=== PATIENT | female | born 1995 | race African-American/Black ===

== ENCOUNTER 2019-10-18 18:04 | Emergency (ER) | payer SELFPAY ==
[~2019-10-18] VITALS: Ht 173.5 cm; Wt 138.1 kg
--- NOTE | 2019-10-18 18:18 | NUR ---
Brought to Overflow Room secured for pysch patient if sitter with patient. ER already has pysch pt in the pysch room.
--- NOTE | 2019-10-18 18:45 | ED Psychosocial ---
General Chief Complaint: Psych/Social Disorder Stated Complaint: SUICIDAL THOUGHTS Source: patient Exam Limitations: no limitations History of Present Illness Date Seen by Provider: Oct 18, 2019 Time Seen by Provider: 18:44 Initial Comments Patient was brought here by her mother with complaint of depression and suicidal thoughts. She had written a letter that ended in she didn't want to live anymore. She has been down recently. She denies specific plan. No physical complaints. Allergies and Home Medications Home Medications No Active Prescriptions or Reported Meds Patient Home Medication List Home Medication List Reviewed: Yes Review of Systems Constitutional: no symptoms reported Respiratory: no symptoms reported Cardiovascular: no symptoms reported Psychiatric/Neurological: Depressed All Other Systems Reviewed Negative Unless Noted: Yes Past Uwcoava-Ldoqnx-Xkvkgo Hx Patient Social History Recent Foreign Travel: No Contact w/Someone Who Travel: No Physical Exam Vital Signs - First Documented 10/18/19 18:18 Temp 36.6 Pulse 95 Resp 20 B/P (MAP) 155/90 (111) Pulse Ox 100 O2 Delivery Room Air Capillary Refill : Height, Weight, BMI Height: '" Weight: lbs. oz. kg; BMI Method: General Appearance: WD/WN, obese HEENT: PERRL/EOMI, pharynx normal Neck: supple Respiratory: lungs clear, normal breath sounds Cardiovascular: regular rate, rhythm, no edema Gastrointestinal: non tender, soft Extremities: normal inspection Neurologic/Psychiatric: chemical operator II-XII nml as tested, no motor/sensory deficits, alert, oriented x 3, depressed affect Appearance/Memory: appropriate appearance Behavior/Eye Contact: cooperative Thoughts/Hallucinations: no apparent hallucination Skin: normal color, warm/dry Progress/Results/Core Measures Results/Orders Lab Results Laboratory Tests Test 10/18/19 18:35 10/18/19 18:50 Range/Units White Blood Count 8.5 4.3-11.0 10^3/uL Red Blood Count 5.64 4.35-5.85 10^6/uL Hemoglobin 14.3 11.5-16.0 G/DL Hematocrit 44 35-52 % Mean Corpuscular Volume 79 L 80-99 FL Mean Corpuscular Hemoglobin 25 25-34 PG Mean Corpuscular Hemoglobin Concent 32 32-36 G/DL Red Cell Distribution Width 12.9 10.0-14.5 % Platelet Count 328 130-400 10^3/uL Mean Platelet Volume 8.5 7.4-10.4 FL Neutrophils (%) (Auto) 63 42-75 % Lymphocytes (%) (Auto) 31 12-44 % Monocytes (%) (Auto) 5 0-12 % Eosinophils (%) (Auto) 1 0-10 % Basophils (%) (Auto) 1 0-10 % Neutrophils # (Auto) 5.3 1.8-7.8 X 10^3 Lymphocytes # (Auto) 2.6 1.0-4.0 X 10^3 Monocytes # (Auto) 0.4 0.0-1.0 X 10^3 Eosinophils # (Auto) 0.1 0.0-0.3 10^3/uL Basophils # (Auto) 0.1 0.0-0.1 10^3/uL Sodium Level 140 135-145 MMOL/L Potassium Level 4.0 3.6-5.0 MMOL/L Chloride Level 103 98-107 MMOL/L Carbon Dioxide Level 22 21-32 MMOL/L Anion Gap 15 H 5-14 MMOL/L Blood Urea Nitrogen 8 7-18 MG/DL Creatinine 0.66 0.60-1.30 MG/DL Estimat Glomerular Filtration Rate > 60 BUN/Creatinine Ratio 12 Glucose Level 93 70-105 MG/DL Calcium Level 9.9 8.5-10.1 MG/DL Corrected Calcium 9.5 8.5-10.1 MG/DL Total Bilirubin 0.4 0.1-1.0 MG/DL Aspartate Amino Transf (AST/SGOT) 41 H 5-34 U/L Alanine Aminotransferase (ALT/SGPT) 63 H 0-55 U/L Alkaline Phosphatase 79 40-136 U/L Total Protein 8.5 H 6.4-8.2 GM/DL Albumin 4.5 3.2-4.5 GM/DL Salicylates Level 2.0 L 5.0-20.0 MG/DL Acetaminophen Level < 10 L 10-30 UG/ML Serum Alcohol < 10 <10 MG/DL Urine Color YELLOW Urine Clarity CLEAR Urine pH 5.0 5-9 Urine Specific [place] 1.025 H 1.016-1.022 Urine Protein NEGATIVE NEGATIVE Urine Glucose (UA) NEGATIVE NEGATIVE Urine Ketones NEGATIVE NEGATIVE Urine Nitrite NEGATIVE NEGATIVE Urine Bilirubin NEGATIVE NEGATIVE Urine Urobilinogen 0.2 < = 1.0 MG/DL Urine Leukocyte Esterase NEGATIVE NEGATIVE Urine RBC (Auto) 2+ H NEGATIVE Urine RBC 0-2 /HPF Urine WBC RARE /HPF Urine Squamous Epithelial Cells 0-2 /HPF Urine Crystals NONE /LPF Urine Bacteria NEGATIVE /HPF Urine Casts NONE /LPF Urine Mucus NONE /LPF Urine Culture Indicated NO Urine Test NEGATIVE NEGATIVE Urine Opiates Screen NEGATIVE NEGATIVE Urine Oxycodone Screen NEGATIVE NEGATIVE Urine Methadone Screen NEGATIVE NEGATIVE Urine Propoxyphene Screen NEGATIVE NEGATIVE Urine Barbiturates Screen NEGATIVE NEGATIVE Ur Tricyclic Antidepressants Screen NEGATIVE NEGATIVE Urine Phencyclidine Screen NEGATIVE NEGATIVE Urine Amphetamines Screen NEGATIVE NEGATIVE Urine Methamphetamines Screen NEGATIVE NEGATIVE Urine Benzodiazepines Screen NEGATIVE NEGATIVE Urine Cocaine Screen NEGATIVE NEGATIVE Urine Cannabinoids Screen NEGATIVE NEGATIVE My Orders Orders - IVON BEDOYA MD Ua Culture If Indicated (10/18/19 18:30) Cbc With Automated Diff (10/18/19 18:30) Comprehensive Metabolic Panel (10/18/19 18:30) Alcohol (10/18/19 18:30) Drug Screen Stat (Urine) (10/18/19 18:30) Acetaminophen (10/18/19 18:30) Salicylate (10/18/19 18:30) Hcg,Qualitative Urine (10/18/19 18:30) Consult Psychologist (10/18/19 18:49) Vital Signs/I&O 10/18/19 18:18 Temp 36.6 Pulse 95 Resp 20 B/P (MAP) 155/90 (111) Pulse Ox 100 O2 Delivery Room Air Progress Progress Note : Time: 21:56 Initial ECG Impression: Sinus Bradycardia (patient was screened by mental health worker via robot. They feel inpatient hospitalization is required. Await disposition.) Departure Impression Primary Impression: Depression Additional Impression: Suicidal thoughts Disposition: 65 XFER TO PSYCH HOSP/UNIT Condition: Stable Transfer Transfer Reason: Exceeds level of care Time Spoke to Accepting Phy: 01:[address] Tavares accepted transfer to [facility] health. Transfer Time: 01:30 Transfer Facility: [facility] health unit [facility] Method of Transfer: Private Vehicle Departure-Patient Inst. Referrals: LINDA BOSWELL MD (PCP/Family) Primary Care Physician Scripts No Active Prescriptions or Reported Meds IVON BEDOYA MD Oct 18, 2019 18:45
[2019-10-18 19:02] LABS: HCG,QUALITATIVE URINE NEGATIVE (NEGATIVE)
[2019-10-18 19:05] LABS: HEMATOCRIT 44 % (35-52); HEMOGLOBIN 14.3 G/DL (11.5-16.0); MEAN CORPUSCULAR HEMOGLOBIN 25 PG (25-34); MEAN CORPUSCULAR HGB CONC 32 G/DL (32-36); MEAN CORPUSCULAR VOLUME 79 FL (80-99); WHITE BLOOD COUNT 8.5 10^3/uL (4.3-11.0)
[2019-10-18 19:06] LABS: BASOPHILS % (AUTO) 1 % (0-10); EOSINOPHILS # (AUTO) 0.1 10^3/uL (0.0-0.3); EOSINOPHILS % (AUTO) 1 % (0-10); LYMPHOCYTES # (AUTO) 2.6 X 10^3 (1.0-4.0); LYMPHOCYTES % (AUTO) 31 % (12-44); MEAN PLATELET VOLUME 8.5 FL (7.4-10.4); MONOCYTES # (AUTO) 0.4 X 10^3 (0.0-1.0); MONOCYTES % (AUTO) 5 % (0-12); NEUTROPHILS # (AUTO) 5.3 X 10^3 (1.8-7.8); NEUTROPHILS % (AUTO) 63 % (42-75); PLATELET COUNT 328 10^3/uL (130-400); RED CELL DISTRIBUTION WIDTH 12.9 % (10.0-14.5)
[2019-10-18 19:07] LABS: BASOPHILS # (AUTO) 0.1 10^3/uL (0.0-0.1)
[2019-10-18 19:12] LABS: AMPHETAMINE SCREEN, URINE NEGATIVE (NEGATIVE); BARBITURATE SCREEN URINE NEGATIVE (NEGATIVE); BENZODIAZEPINES SCREEN URINE NEGATIVE (NEGATIVE); CANNABINOID SCREEN, URINE NEGATIVE (NEGATIVE); COCAINE SCREEN URINE NEGATIVE (NEGATIVE); METHADONE STAT NEGATIVE (NEGATIVE); METHAMPHETAMINE SCREEN URINE S NEGATIVE (NEGATIVE); OPIATE SCREEN URINE NEGATIVE (NEGATIVE); OXYCODONE STAT NEGATIVE (NEGATIVE); PROPOXYPHENE STAT NEGATIVE (NEGATIVE); TRICYCLIC ANTIDEPRESSANTS SCRE NEGATIVE (NEGATIVE)
--- NOTE | 2019-10-18 19:15 | NUR ---
Report to Salvador HUANG.
[2019-10-18 19:18] LABS: BILIRUBIN,URINE NEGATIVE (NEGATIVE); CLARITY,URINE CLEAR; COLOR,URINE YELLOW; GLUCOSE, URINE (UA) NEGATIVE (NEGATIVE); KETONES,URINE NEGATIVE (NEGATIVE); NITRITE,URINE NEGATIVE (NEGATIVE); PROTEIN,URINE NEGATIVE (NEGATIVE)
[2019-10-18 19:19] LABS: BACTERIA,URINE NEGATIVE /HPF; LEUKOCYTE ESTERASE ,URINE NEGATIVE (NEGATIVE); RBC,URINE 0-2 /HPF; SQUAMOUS EPITHELIAL CELL,UR 0-2 /HPF; WBC,URINE RARE /HPF
[2019-10-18 19:31] LABS: CARBON DIOXIDE 22 MMOL/L (21-32); CHLORIDE 103 MMOL/L (98-107); SODIUM 140 MMOL/L (135-145)
[2019-10-18 19:32] LABS: ALANINE AMINOTRANSFERASE 63 U/L (0-55); ALBUMIN 4.5 GM/DL (3.2-4.5); ALKALINE PHOSPHATASE 79 U/L (40-136); BILIRUBIN,TOTAL 0.4 MG/DL (0.1-1.0); BUN/CREATININE RATIO 12; CALCIUM 9.9 MG/DL (8.5-10.1); CREATININE SERUM 0.66 MG/DL (0.60-1.30); GFR ESTIMATED > 60; GLUCOSE 93 MG/DL (70-105); TOTAL PROTEIN 8.5 GM/DL (6.4-8.2)
[2019-10-18 19:33] LABS: ACETAMINOPHEN < 10 UG/ML (10-30)
--- NOTE | 2019-10-18 19:52 | NUR ---
[facility] CONTACTED FOR SCREENER CONSULT.
--- NOTE | 2019-10-18 21:19 | NUR ---
[facility] SCREENER IN CONFERENCE WITH PATIENT.
--- NOTE | 2019-10-18 22:02 | NUR ---
[facility] CALLED AND STATED THAT [place] HAS A BED AND WE ARE WAITING FOR A RESPONSE.
--- NOTE | 2019-10-18 23:09 | NUR ---
PT IN ROOM SITTING IN CHAIR WITH MOM AT SIDE. PT GIVEN A WARM BLANKET AND INFORMED OF THE POSSIBILITY OF A LONG WAIT TO HEAR BACK FROM [place]. MOM AND PT VOICED UNDERSTANDING. PT AND MOM INSTRUCTED TO INFORM STAFF IF THERE IS ANYTHING THEY NEED.
--- NOTE | 2019-10-19 00:02 | NUR ---
[facility] CALLED TO CONFIRM BED FOR PT AND REPORT GIVEN TO CARLA.
--- NOTE | 2019-10-19 00:05 | NUR ---
[facility] CONTACTED AND THEY ARE GOING TO ARRANGE TRANSPORT.
[2019-10-19 01:45] VITALS: BP 139/79
== END 2019-10-19 01:49 ==
LOC: ER FS 18:05
DX: F32.9 Major depressive disorder, single episode, unspecified (principal); R45.851 Suicidal ideations
CPT/HCPCS: 36415; 80053; 80306; 80320; 80329; 81000; 84703; 85025